=== PATIENT | male | born 1950 | race Caucasian/White ===

== ENCOUNTER → 2017-09-25 | Day surgery (SDC) | payer MEDICARE ==
[~2017-09-25] MED LIST: GENTAMICIN SULFATE 80 MG/2 ML VIAL ONE; KETOROLAC TROMETHAMINE 30 MG/ML (IVP) VIAL ONE; LACTATED RINGER'S 1000 ML INJ 1,000 ML ONE; MEPERIDINE HCL 25 MG/ML VIAL ONE; ONDANSETRON HCL 4 MG/2 ML VIAL IV PUSH ONE; PROPOFOL 200 MG/20 ML AMP IV ONE; SODIUM CHLORIDE 0.9% 100 ML BAG IV ONE
--- NOTE | 2017-09-25 15:45 | TN ---
cc: Zander Gabriel MD DATE OF SURGERY: 09/25/2017 PREOPERATIVE DIAGNOSIS: Distal left ureteral calculus (ICD-10 code of N20.1). POSTOPERATIVE DIAGNOSIS: Distal left ureteral calculus (ICD-10 code of N20.1). PROCEDURE: Cystourethroscopy with left ureteroscopic holmium laser lithotripsy and stone basket manipulation (CPT code 70032). INDICATIONS: Mr. Alarcon is a 67-year-old gentleman who has failed medical expulsive therapy for a 6 x 4 mm distal left ureteral calculus, presents now for definitive treatment. FINDINGS: Normal anterior urethra with a grade II bulbous urethral stricture. 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 Ureteral orifice normal size, shape and position, effluxing clear urine. There are no candace tumors, abnormal mucosa or calcifications identified. No significant trabeculations, diverticula or cellules. Ureteroscopy shows a 6 x 4 mm dark brown [place] approximately 2.5 cm proximal to the left ureterovesical junction. DESCRIPTION OF PROCEDURE: Procedure as well as risks and benefits were explained to the patient. Informed consent was obtained. The patient was taken to the major operative theater where he was placed in supine position. The patient was identified as well as the operative site. A universal timeout was performed in the usual fashion. At this time, general anesthetic and prophylactic intravenous antibiotics consisting of gentamicin 80 mg was administered. After adequate anesthetic, the patient was placed in the low dorsal lithotomy position and prepped and draped in the usual sterile fashion. At this time, a 22.5 Macedonian cystoscope with a 30 degree lens was inserted into the urethra and bladder with the above findings. Attention was directed to the left ureteral orifice, where a 0.035 inch hybrid guidewire was placed under direct and fluoroscopic guidance up the ureter into the renal pelvis. A second 0.035 inch Koehler guidewire was placed in the same fashion. At this time, the cystoscope was removed. The safety wire was attached to the drape. The working wire was then backloaded onto a semi-rigid mini ureteroscope and placed up the urethra and into the bladder, and riding the wires up the distal ureter easily until the stone was identified. Just proximal to the stone, there was a bifurcation. 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 At this time, using a 365 micron holmium fiber and a holmium laser lithotripsy at a setting of 0.8 and 8, holmium laser lithotripsy was performed on the stone until it was broken into about 5 or 6 separate fragments and then using a Zero Tip Nitinol basket, several passes were made to remove all of the stone fragments and dropped into the bladder. At this time, the final placement of the scope as far proximal as possible, then slowly removing, there was just some small debris, but no additional stones were identified. The ureteroscope was removed and the cystoscope was then placed back into the bladder. The fragments were irrigated out and sent for crystallographic analysis. The ureteral orifice looked fine. There was no evidence of any candace bleeding and appeared to be open and clear urine effluxing. At this time, decision was made not to leave a stent. The bladder was then decompressed. The scope removed. The patient tolerated the procedure well, emerged from anesthetic without difficulty and transferred to the recovery room in stable condition to be discharged home when criteria is met. There are no obvious complications. MD LITTLE Mathews/JENAE , 03:12 PM , 03:44 PM
== END | disposition home or self-care (01) ==
LOC: ESDC 10:26
PROVIDERS: ATTEND Urology
DX: N20.1 Calculus of ureter (principal)
CPT/HCPCS: 00918; 52353; 76000; C1769; J1580; J1885; J2175; J2405; J3010; J7120